=== PATIENT | female | born 1980 | race American Indian/Alaskan Native ===

== ENCOUNTER 2018-05-05 04:34 | Emergency (ER) | payer OTHER ==
[2018-05-05 04:38] VITALS: BP 152/68; PULSE 88; RESP 18; TEMP 98.8; O2SAT 98
[2018-05-05 04:39] VITALS: BMI 39.6
[2018-05-05] MEDS ORDERED: Divalproex 500 mg ER (ONCE DAILY formulation) PO STA (05:10)
--- NOTE | 2018-05-05 05:13 | ED PDOC ---
HPI: Psych/Substance Abuse Chief Complaint (Provider): depressed, out of meds History Per: Patient History/Exam Limitations: no limitations Onset/Duration Of Symptoms: Days (2) Current Symptoms Are (Timing): Still Present Additional Complaint(s): 37 y/o female history of schizoaffective disorder, bipolar type brought in by EMS for evaluation. Patient states she signed herself out of [facility] 2 days ago and has not had her Depakote medication since then. Patient states she has not been feeling right since then, tried to return to [facility] yesterday and was told she needs to go to a homeless [facility]. Patient states tonight while at the [facility] she could not fall asleep and felt nauseous and depressed. States her life is "a mess" due to her living situation and she has no help to get her medications. Denies fever, vomiting, chest pain, shortness of breath, palpitations, abdominal pain, changes in bowel movements, urinary symptoms. <Emy Davidson - Last Filed: 05/05/18 05:47> <Simon Hart - Last Filed: 05/05/18 06:40> Time Seen by Provider: 05/05/18 05:00 Chief Complaint (Nursing): Lower Extremity Problem/Injury Past Medical History Reviewed: Historical Data, Nursing Documentation, Vital Signs Vital Signs: Last Vital Signs Temp 98.8 F 05/05/18 04:37 Pulse 88 05/05/18 04:37 Resp 18 05/05/18 04:37 BP 152/68 H 05/05/18 04:37 Pulse Ox 98 05/05/18 04:37 - Medical History PMH: Bipolar Disorder - Surgical History Other surgeries: left eye cataract - Family History Family History: States: No Known Family Hx - Living Arrangements Living Arrangements: With Family <Emy Davidson - Last Filed: 05/05/18 05:47> Vital Signs: Last Vital Signs Temp 98.8 F 05/05/18 04:37 Pulse 88 05/05/18 04:37 Resp 18 05/05/18 04:37 BP 152/68 H 05/05/18 04:37 Pulse Ox 98 05/05/18 05:57 <Simon Hart - Last Filed: 05/05/18 06:40> - Allergies Allergies/Adverse Reactions: Allergies Allergy/AdvReac Type Severity Reaction Status Date / Time No Known Allergies Allergy Verified 05/05/18 04:54 Review of Systems ROS Statement: Except As Marked, All Systems Reviewed And Found Negative Psych: Positive for: Depression <Emy Davidson - Last Filed: 05/05/18 05:47> Physical Exam - Reviewed Nursing Documentation Reviewed: Yes Vital Signs Reviewed: Yes - Physical Exam Appears: Positive for: Well, Non-toxic, No Acute Distress Head Exam: Positive for: ATRAUMATIC, NORMAL INSPECTION, NORMOCEPHALIC Skin: Positive for: Normal Color Eye Exam: Positive for: Normal appearance ENT: Positive for: Normal ENT Inspection Cardiovascular/Chest: Positive for: Regular Rate, Rhythm Respiratory: Positive for: Normal Breath Sounds Gastrointestinal/Abdominal: Positive for: Normal Exam Back: Positive for: Normal Inspection Extremity: Positive for: Normal ROM Neurologic/Psych: Positive for: Alert, Oriented (x3) <Emy Davidson - Last Filed: 05/05/18 05:47> - ECG O2 Sat by Pulse Oximetry: 98 - Progress ED Course And Treament: -upreg -crisis eval -Depakote PO <Emy Davidson - Last Filed: 05/05/18 05:47> Medical Decision Making Medical Decision MakinAM --Patient cleared by crisis --Dx: Depression by Dr. Nur <Simon Hart - Last Filed: 05/05/18 06:40> Disposition - Disposition Disposition Time: 06:00 Patient Signed Over To: Simon Hart Handoff Comments: pending crisis eval <Emy Davidson - Last Filed: 05/05/18 05:47> - Disposition Disposition: Routine/Home Disposition Time: 06:39 <Simon Hart - Last Filed: 05/05/18 06:40> - Clinical Impression Clinical Impression: Schizoaffective disorder, bipolar type - Disposition Condition: STABLE Instructions: Depression
== END 2018-05-05 07:00 | disposition home or self-care (01) ==
LOC: H.ER 04:34
DX: T42.6X6A Underdosing of other antiepileptic and sedative-hypnotic drugs, initial encounter (principal); Z91.138 Patient's unintentional underdosing of medication regimen for other reason; F25.0 Schizoaffective disorder, bipolar type

== ENCOUNTER 2018-05-18 10:29 | Emergency (ER) | payer OTHER ==
[2018-05-18 10:29] VITALS: BMI 39.6
[2018-05-18 12:14] LABS: BARBITURATES, UR NEGATIVE (NEGATIVE); BENZODIAZEPINES, UR NEGATIVE (NEGATIVE); OPIATES, UR NEGATIVE (NEGATIVE); PHENCYCLIDINE, UR NEGATIVE (NEGATIVE)
--- NOTE | 2018-05-18 13:45 | ED PDOC ---
HPI: Psych/Substance Abuse Time Seen by Provider: 05/18/18 11:02 Chief Complaint (Nursing): Psychiatric Evaluation History Per: Patient Additional Complaint(s): Pt. states for the past 1.5 years she's been having intermittent depression. Reports yesterday she was in her residential and felt very sad at the fact that she's homeless. Also reports having a gradual onset frontal headache. Further states she's had similar headaches in the past and headache is usually resolved with Tylenol but she does not have money to buy it. Pt. has not used any meds to help relieve symptoms. Denies fever, head injury, rash, N/V, sudden onset of headache, LOC, neck pain/stiffness, SI/HI, hallucinations. Past Medical History Reviewed: Historical Data, Nursing Documentation, Vital Signs Vital Signs: Last Vital Signs Temp 98.6 F 05/18/18 10:33 Pulse 66 05/18/18 10:33 Resp 20 05/18/18 10:33 BP 144/87 05/18/18 10:33 Pulse Ox 100 05/18/18 10:33 - Medical History PMH: Bipolar Disorder, Schizophrenia Denies: Diabetes, Hepatitis, HIV, HTN, Seizures, Sexually Transmitted Disease - Family History Family History: States: No Known Family Hx - Allergies Allergies/Adverse Reactions: Allergies Allergy/AdvReac Type Severity Reaction Status Date / Time No Known Allergies Allergy Verified 05/05/18 04:54 Review of Systems ROS Statement: Except As Marked, All Systems Reviewed And Found Negative Neurological: Positive for: Headache Physical Exam - Physical Exam Appears: Positive for: Well, Non-toxic, No Acute Distress Head Exam: Positive for: ATRAUMATIC, NORMAL INSPECTION, NORMOCEPHALIC Skin: Positive for: Normal Color, Warm. Negative for: Rash Eye Exam: Positive for: EOMI, Normal appearance, PERRL ENT: Positive for: Normal ENT Inspection Neck: Positive for: Normal, Painless ROM, Supple Cardiovascular/Chest: Positive for: Regular Rate, Rhythm Respiratory: Positive for: Normal Breath Sounds Gastrointestinal/Abdominal: Positive for: Soft. Negative for: Tenderness Neurologic/Psych: Positive for: Alert, Oriented (x3), Mood/Affect (calm, cooperative). Negative for: Aphasia, Facial Droop - Laboratory Results Urine POC: Negative - ECG O2 Sat by Pulse Oximetry: 100 - Progress ED Course And Treament: Tylenol PO, crisis eval ordered. Pt. evaluated by Alayna FRIEDMAN who spoke with Dr. Krishnan and cleared pt. for discharge. On re-evaluation, pt. sleeping comfortably. Easily arousable. Reports good relief of headache. Disposition - Clinical Impression Clinical Impression: Depression - Patient ED Disposition Is Patient to be Admitted: No - Disposition Referrals: [facility] [Outside] Disposition: Routine/Home Disposition Time: 13:20 Condition: STABLE Additional Instructions: BERENICE DURAN, thank you for letting us take care of you today. Your provider was Blaise Jacome MD and you were treated for PSYCH EVAL. The emergency medical care you received today was directed at your acute symptoms. If you were prescribed any medication, please fill it and take as directed. It may take several days for your symptoms to resolve. Return to the Emergency Department if your symptoms worsen, do not improve, or if you have any other problems. Please contact your doctor or call one of the physicians/clinics you have been referred to that are listed on the Patient Visit Information form that is included in your discharge packet. Bring any paperwork you were given at discharge with you along with any medications you are taking to your follow up visit. Our treatment cannot replace ongoing medical care by a primary care provider outside of the emergency department. Thank you for allowing the [facility] team to be part of your care today. If you had an X-Ray or CT scan: A Radiologist will review the ED reading if any change in treatment is needed we will contact you. If you had a blood, urine, or wound culture: It will take several days for the results, if any change in treatment is needed we will contact you. If you had an STI test: It will take 48 hours for the results. Please call after 1 week if you have not heard back. Instructions: Depression, Adult (DC) Forms: [employer] (Mongolian)
[2018-05-18 14:06] VITALS: BP 128/78; PULSE 79; RESP 19; TEMP 97.6
[2018-05-18 16:07] VITALS: O2SAT 100
== END 2018-05-18 14:07 | disposition home or self-care (01) ==
LOC: H.ER 10:29
DX: F32.9 Major depressive disorder, single episode, unspecified (principal); Z86.59 Personal history of other mental and behavioral disorders; Z59.0 Homelessness; Z00.8 Encounter for other general examination

== ENCOUNTER 2018-05-22 16:27 | Emergency (ER) | payer OTHER ==
[2018-05-22 16:27] VITALS: BMI 39.6
[2018-05-22 16:38] VITALS: RESP 16; O2SAT 100
[2018-05-22 19:07] VITALS: BP 132/78; PULSE 72; TEMP 98.2
--- NOTE | 2018-05-22 19:12 | ED PDOC ---
HPI: Abdomen Time Seen by Provider: 05/22/18 18:21 Chief Complaint (Nursing): Abdominal Pain Chief Complaint (Provider): Abdominal Pain History Per: Patient History/Exam Limitations: no limitations Onset/Duration Of Symptoms: Hrs Current Symptoms Are (Timing): Still Present Additional Complaint(s): 37 y/o female with a PMHx of Bipolar Disorder and Schizophrenia presents to the ED for evaluation of mid-abdominal pain, onset earlier today. Patient states pain is mild and associated with nausea. Of note, patient additionally is requesting assistance to get into housing from the ER. Otherwise, patient denies dysuria, vomiting and any radiation of abdominal pain. PMD: No Provider Past Medical History Reviewed: Historical Data, Nursing Documentation, Vital Signs Vital Signs: Last Vital Signs Temp 98.2 F 05/22/18 19:06 Pulse 72 05/22/18 19:06 Resp 16 05/22/18 19:06 BP 132/78 05/22/18 19:06 Pulse Ox 100 05/22/18 19:06 - Medical History PMH: Bipolar Disorder, Schizophrenia Denies: Diabetes, Hepatitis, HIV, HTN, Seizures, Sexually Transmitted Disease - Surgical History Surgical History: No Surg Hx - Family History Family History: States: Unknown Family Hx - Allergies Allergies/Adverse Reactions: Allergies Allergy/AdvReac Type Severity Reaction Status Date / Time No Known Allergies Allergy Verified 05/27/18 21:47 Review of Systems ROS Statement: Except As Marked, All Systems Reviewed And Found Negative Gastrointestinal: Positive for: Nausea, Abdominal Pain. Negative for: Vomiting Genitourinary Female: Negative for: Dysuria Physical Exam - Reviewed Nursing Documentation Reviewed: Yes Vital Signs Reviewed: Yes - Physical Exam Appears: Positive for: No Acute Distress (pleasant and cooperative) Head Exam: Positive for: ATRAUMATIC Skin: Positive for: Normal Color, Warm, Dry Eye Exam: Positive for: Normal appearance, EOMI, PERRL ENT: Positive for: Other (Poor Dentition ) Gastrointestinal/Abdominal: Positive for: Normal Exam, Soft. Negative for: Tenderness Extremity: Positive for: Normal ROM - ECG O2 Sat by Pulse Oximetry: 100 (RA) Pulse Ox Interpretation: Normal Medical Decision Making Medical Decision Making: Time: 1848 A/P: Patient with mild abdominal pain without vomiting. -- Resolved with PO GI cocktail -- Patient tolerating PO -- Informed do not have services to assist with housing. -- Patient to be discharged home and follow up with PMD. Patient given a referral to the outpatient clinic. -- Pepcid 40 mg PO -- Reglan 5 mg PO -- Reglan 10 mg PO -- Reglan 10 mg PO Scribe Attestation: Documented by Tj Link, acting as a scribe for Deb Love MD Provider Scribe Attestation: All medical record entries made by the Scribe were at my direction and personally dictated by me. I have reviewed the chart and agree that the record accurately reflects my personal performance of the history, physical exam, medical decision making, and the department course for this patient. I have also personally directed, reviewed, and agree with the discharge instructions and disposition. Disposition - Clinical Impression Clinical Impression: Abdominal pain - Disposition Referrals: [facility] [Outside] Disposition Time: 19:00 Condition: IMPROVED Additional Instructions: Follow up in outpatient clinic. Increase water and soft foods while symptoms persist. Instructions: Stomach Ache and Stomach Upset Forms: [email or web address] (German), [facility] ED School/Work Excuse Print Language: FAROESE
== END 2018-05-22 19:07 | disposition home or self-care (01) ==
LOC: H.ER 16:27
DX: R10.9 Unspecified abdominal pain (principal); F20.9 Schizophrenia, unspecified; F31.9 Bipolar disorder, unspecified

== ENCOUNTER 2018-05-26 11:18 | Emergency (ER) | payer OTHER ==
[2018-05-26 11:18] VITALS: BMI 39.6
[2018-05-26 11:23] VITALS: O2SAT 100
--- NOTE | 2018-05-26 12:03 | ED PDOC ---
HPI: Female Pain Time Seen by Provider: 05/26/18 11:32 Chief Complaint (Nursing): Female Genitourinary Chief Complaint (Provider): Headache History Per: Patient Additional Complaint(s): 37 yo female, PMH of Bipolar disorder and schizophrenia, presents to ED for evaluation of headache and would like some Motrin. Additionally, Pt notes she has had urinary frequency in the last few hours, no burning on urination or blood in her urine. Pt also reports being homeless and alberto like to know where to go. Past Medical History Reviewed: Nursing Documentation, Vital Signs Vital Signs: Last Vital Signs Temp 98.3 F 05/26/18 11:23 Pulse 78 05/26/18 11:23 Resp 16 05/26/18 11:23 BP 135/84 05/26/18 11:23 Pulse Ox 100 05/26/18 11:23 - Medical History PMH: Bipolar Disorder, Schizophrenia Denies: Diabetes, Hepatitis, HIV, HTN, Seizures, Sexually Transmitted Disease - Surgical History Surgical History: No Surg Hx - Family History Family History: States: Unknown Family Hx - Living Arrangements Living Arrangements: Other - Social History Current smoker - smoking cessation education provided: No Alcohol: None Drugs: Denies - Allergies Allergies/Adverse Reactions: Allergies Allergy/AdvReac Type Severity Reaction Status Date / Time No Known Allergies Allergy Verified 05/05/18 04:54 Review of Systems ROS Statement: Except As Marked, All Systems Reviewed And Found Negative Neurological: Positive for: Headache Physical Exam - Reviewed Nursing Documentation Reviewed: Yes Vital Signs Reviewed: Yes - Physical Exam Appears: Positive for: Well, Non-toxic, No Acute Distress Head Exam: Positive for: ATRAUMATIC, NORMAL INSPECTION, NORMOCEPHALIC Skin: Positive for: Normal Color, Warm, DRY Eye Exam: Positive for: EOMI, Normal appearance, PERRL ENT: Positive for: Normal ENT Inspection Neck: Positive for: Normal, Painless ROM Cardiovascular/Chest: Positive for: Regular Rate, Rhythm Respiratory: Positive for: CNT, Normal Breath Sounds Gastrointestinal/Abdominal: Positive for: Normal Exam, Soft Back: Positive for: Normal Inspection Extremity: Positive for: Normal ROM Neurologic/Psych: Positive for: Alert, Oriented - ECG O2 Sat by Pulse Oximetry: 100 Medical Decision Making Medical Decision Making: Pt medicated with Motrin PO, reports good relief of pain. Crisis team stopped by Pt room to provide Pt with homeless senior care resources. Dip (-) blood, leuks, nites Pt given Food tray as well, which she tolerated and reported she felt comfortable to head to senior care after Disposition - Clinical Impression Clinical Impression: Headache - Patient ED Disposition Is Patient to be Admitted: No - Disposition Disposition: Routine/Home Disposition Time: 12:31 Condition: STABLE
[2018-05-26 12:28] VITALS: BP 129/74; PULSE 82; RESP 18; TEMP 98.5
== END 2018-05-26 12:28 | disposition home or self-care (01) ==
LOC: H.ER 11:18
DX: R51 Headache (principal); F20.9 Schizophrenia, unspecified; F31.9 Bipolar disorder, unspecified; Z59.0 Homelessness

== ENCOUNTER 2018-05-27 16:35 | Inpatient (IN) | payer OTHER ==
[2018-05-27 16:35] VITALS: BMI 39.6
[2018-05-27 16:49] VITALS: O2SAT 98
--- NOTE | 2018-05-27 17:05 | ED PDOC ---
HPI: Psych/Substance Abuse Time Seen by Provider: 05/27/18 16:55 Chief Complaint (Nursing): Psychiatric Evaluation Chief Complaint (Provider): Psychiatric Evaluation History Per: Patient History/Exam Limitations: no limitations Suicide/Self Injury Attempted (Context): None Severity: Moderate Additional Complaint(s): 37 year old undomiciled female with a past medical history of psychiatric problems is brought into the ED by EMS for a psychiatric evaluation. Patient r eports experiencing depression and suicidal ideation (no plan). Patient reports that she has not had depression medication for 1x month (since she was discharged from here). Patient denies having a suicidal plan, but 5x years ago she made an attempt by cutting her neck with a butter knife. PMD: None provided. Past Medical History Reviewed: Historical Data, Nursing Documentation, Vital Signs Vital Signs: Last Vital Signs Temp 98.9 F 05/27/18 16:46 Pulse 87 05/27/18 16:46 Resp 17 05/27/18 16:46 BP 147/90 05/27/18 16:46 Pulse Ox 98 05/27/18 16:46 DARRELL Report Viewed: Yes - Medical History PMH: Bipolar Disorder, Depression, Schizophrenia Denies: Diabetes, Hepatitis, HIV, HTN, Seizures, Sexually Transmitted Disease - Family History Family History: States: No Known Family Hx - Living Arrangements Living Arrangements: Other (homeless) - Social History Current smoker - smoking cessation education provided: Yes Alcohol: None Drugs: Denies - Allergies Allergies/Adverse Reactions: Allergies Allergy/AdvReac Type Severity Reaction Status Date / Time No Known Allergies Allergy Verified 05/27/18 21:47 Review of Systems ROS Statement: Except As Marked, All Systems Reviewed And Found Negative Psych: Positive for: Depression, Suicidal ideation ((-) plan) Physical Exam - Reviewed Nursing Documentation Reviewed: Yes Vital Signs Reviewed: Yes - Physical Exam Appears: Positive for: Well (appears well, requesting blanket), Non-toxic, No Acute Distress Head Exam: Positive for: ATRAUMATIC, NORMOCEPHALIC Skin: Positive for: Normal Color, Warm, Dry Cardiovascular/Chest: Positive for: Regular Rate, Rhythm Respiratory: Positive for: Normal Breath Sounds Neurologic/Psych: Positive for: Alert, Oriented (3x) - Laboratory Results Result Diagrams: 05/27/18 17:50 05/27/18 17:50 - ECG O2 Sat by Pulse Oximetry: 98 (RA) Pulse Ox Interpretation: Normal Medical Decision Making Medical Decision Makin:55 Initial impression: 37 year old female in the ED for a psychiatric evaluation. Initial plan: * crisis evaluation * alcohol serum * CMP * drug screen * upreg * CBC with diff * urinalysis * reevaluation 17:05 Patient evaluated by putty and patch worker Bernice, discussed case with , who requests that the patient be admitted. -------- --------- Scribe Attestation: Documented by Deb Macias, acting as a scribe for Bakari Aguilar PA-C. Provider Scribe Attestation: All medical record entries made by the Scribe were at my direction and personally dictated by me. I have reviewed the chart and agree that the record accurately reflects my personal performance of the history, physical exam, medical decision making, and the department course for this patient. I have also personally directed, reviewed, and agree with the discharge instructions and disposition. Disposition - Clinical Impression Clinical Impression: Schizoaffective disorder - Patient ED Disposition Is Patient to be Admitted: No - Disposition Disposition Time: 17:05 Condition: STABLE
[2018-05-27 18:07] LABS: BASO # 0.1 K/uL (0.0-0.2); EOS # 0.1 K/uL (0.0-0.7); HEMOGLOBIN 9.9 g/dL (12.0-16.0); LYMPH # 2.9 K/uL (1.0-4.3); LYMPH % 53.3 % (20.0-40.0); MEAN CELL VOLUME 70.8 fl (81.0-99.0); MEAN CORPUSCULAR HEMOGLOBIN 21.9 pg (27.0-31.0); MEAN CORPUSCULAR HGB CONC 30.9 g/dL (33.0-37.0); MEAN PLATELET VOLUME 8.3 fl (7.2-11.7); MONO # 0.5 K/uL (0.0-0.8); MONO % 8.9 % (0.0-10.0); NEUT # 1.9 K/uL (1.8-7.0); NEUT % 34.8 % (50.0-75.0); NRBC % 0.1 % (0.0-0.0); RBC 4.51 Mil/uL (3.80-5.20); RED CELL DISTRIBUTION WIDTH 15.7 % (11.5-14.5); WHITE BLOOD COUNT 5.4 K/uL (4.8-10.8)
[2018-05-27 18:09] LABS: SQUAMOUS EPITHIAL < 1 /hpf (0-5); URINE BILIRUBIN NEGATIVE (NEGATIVE); URINE BLOOD SMALL (NEGATIVE); URINE CLARITY CLEAR (Clear); URINE COLOR YELLOW (YELLOW); URINE GLUCOSE (UA) NEG (NEGATIVE); URINE LEUKOCYTE ESTERASE NEG Leu/uL (Negative); URINE PROTEIN NEGATIVE (NEGATIVE); URINE UROBILINOGEN 0.2-1.0 mg/dL (0.2-1.0)
[2018-05-27 18:17] LABS: ALB/GLOB RATIO 1.1 (1.0-2.1); ALT/SGPT 29 U/L (9-52); AST/SGOT 41 U/L (14-36); BLOOD UREA NITROGEN 8 mg/dl (7-17); CALCIUM 9.4 mg/dL (8.4-10.2); GFR NON-AFRICAN AMERICAN > 60
[2018-05-27 18:26] LABS: BARBITURATES, UR NEGATIVE (NEGATIVE); BENZODIAZEPINES, UR NEGATIVE (NEGATIVE); OPIATES, UR NEGATIVE (NEGATIVE); PHENCYCLIDINE, UR NEGATIVE (NEGATIVE)
[2018-05-27] MEDS ORDERED: DiphenhydrAMINE 50 mg/ml Inj IM PRN (20:11)
[2018-05-27] MEDS ORDERED: Magnesium Hydroxide Susp 30 ml UD PO PRN (20:11)
--- NOTE | 2018-05-27 21:57 | PCM.BM ---
Treatment Plan Problems - Problems identified on initial assessmt Medication nonadherence Date Initiated: 05/27/18 Time Initiated: 21:55 Assessment reference: NA Status: Active Auditory Hallucinations Date Initiated: 05/27/18 Time Initiated: 21:56 Assessment reference: NA Status: Active Ineffective Coping Date Initiated: 05/27/18 Time Initiated: 21:56 Assessment reference: NA Status: Active Treatment assets and liabiliti Patient Assests: cooperative, ADL independent, physically healthy, negotiates basic needs, cognitively intact Patient Liabilities: financial problems, poor support system - Milieu Protocol Maintain good personal hygiene: daily Encourage regular showers, daily Remind patient to perform daily oral care, daily Assist patient to perform ADL's Conduct patient checks and document Observation sheet: Q15 minutes Maintain personal safety: every shift Educate patient to report safety concerns to staff, every shift Monitor environment for contraband/sharps Medication safety: Monitor for expected outcome, potential side effects: every shift, Assess barriers to learning: every shift, Assess readiness for medication education: every shift
[2018-05-28 06:32] LABS: T4 6.93 ug/dl (5.5-11.0)
[2018-05-28] MEDS ORDERED: Pneumococcal 23-Valent Vaccine IM ONE (09:00)
[2018-05-28] MEDS ORDERED: Paliperidone Palmitate 234 MG/1.5 ML SYR IM ONE (12:22)
--- NOTE | 2018-05-28 12:49 | CP.PCM.CON ---
History of Present Illness - History of Present Illness History of Present Illness: Reason for Consult: Per hospital protocol HPI: 37 year old female admitted for schizoaffective disorder. No other medical issues. HD stable, NAD. ROS: Per HPI, all other systems reviewed and neg Past Patient History - Infectious Disease Hx of Infectious Diseases: None - Past Social History Alcohol: None Drugs: Denies - CARDIAC Hx Hypertension: No - PULMONARY Hx Respiratory Disorders: No Hx Tuberculosis: No - NEUROLOGICAL Hx Seizures: No - HEENT Hx HEENT Problems: Yes Hx Cataracts: Yes (L eye) - RENAL Hx Chronic Kidney Disease: No - ENDOCRINE/METABOLIC Hx Endocrine Disorders: No - HEMATOLOGICAL/ONCOLOGICAL Hx Human Immunodeficiency Virus (HIV): No - INTEGUMENTARY Hx Dermatological Problems: No - MUSCULOSKELETAL/RHEUMATOLOGICAL Hx Musculoskeletal Disorders: No - GASTROINTESTINAL Hx Gastrointestinal Disorders: No - GENITOURINARY/GYNECOLOGICAL Hx Sexually Transmitted Disorders: No - PSYCHIATRIC Hx Bipolar Disorder: Yes Hx Depression: Yes Hx Schizophrenia: Yes - SURGICAL HISTORY Hx Surgeries: Yes Hx Cataract Extraction: Yes (L cataract Sx age 16) Other/Comment: LEFT EYE CATARACTS age 16. AND L CANCER REMOVAL 1 yr ago - ANESTHESIA Hx Anesthesia: Yes Hx Anesthesia Reactions: No Hx Malignant Hyperthermia: No Has any member of the family had a problem w/ anesthesia?: No Meds Allergies/Adverse Reactions: Allergies Allergy/AdvReac Type Severity Reaction Status Date / Time No Known Allergies Allergy Verified 05/27/18 21:47 - Medications Medications: Current Medications Acetaminophen (Tylenol 325mg Tab) 650 mg PO Q4 PRN PRN Reason: Pain, moderate (4-7) Last Admin: 05/28/18 09:11 Dose: 650 mg Al Hydrox/Mg Hydrox/Simethicone (Maalox Plus 30 Ml) 30 ml PO Q4 PRN PRN Reason: Dyspepsia Diphenhydramine HCl (Benadryl) 50 mg IM Q6 PRN PRN Reason: Extrapyramidal S/S Unable PO Diphenhydramine HCl (Benadryl) 50 mg PO HS PRN PRN Reason: Insomnia Divalproex Sodium (Depakote Dr(*Bid*)) 500 mg PO DAILY GARIMA Divalproex Sodium (Depakote Dr(*Bid*)) 1,000 mg PO HS GARIMA Haloperidol (Haldol) 5 mg PO Q4 PRN PRN Reason: Agitation Haloperidol Lactate (Haldol) 5 mg IM Q4 PRN PRN Reason: Agitation, Unable to Take PO Lorazepam (Ativan) 2 mg IM Q8 PRN PRN Reason: Anxiety/Agitation,Unable PO Lorazepam (Ativan) 1 mg PO Q8 PRN PRN Reason: Anxiety/Agitation Magnesium Hydroxide (Milk Of Magnesia) 30 ml PO HS PRN PRN Reason: Constipation Paliperidone Palmitate (Invega Sustenna) 234 mg IM ONCE ONE Stop: 05/28/18 12:23 Physical Exam - Constitutional Additional comments: Vitals Reviewed GEN: WDWN, alert, cooperative HEENT: NCAT, PERRL, EOMI HEART: RRR, +S1S2, NO MRG LUNG: CTAB, NO WRR ABD: soft, NT, ND, No HSM, No masses EXT: normal pedal pulses NEURO: awake, alert SKIN: warm, dry PSYCH: normal mood, normal affect Results - Vital Signs Recent Vital Signs: Last Vital Signs Temp 98.7 F 05/28/18 09:43 Pulse 82 05/28/18 09:43 Resp 18 05/28/18 09:43 BP 158/81 H 05/28/18 09:43 Pulse Ox 98 05/27/18 22:10 - Labs Result Diagrams: 05/27/18 17:50 05/27/18 17:50 Labs: Laboratory Results - last 24 hr 05/27/18 05/27/18 05/27/18 17:50 17:50 17:50 WBC 5.4 RBC 4.51 Hgb 9.9 L Hct 31.9 L MCV 70.8 L MCH 21.9 L MCHC 30.9 L RDW 15.7 H Plt Count 357 MPV 8.3 Neut % (Auto) 34.8 L Lymph % (Auto) 53.3 H [place] % (Auto) 8.9 Eos % (Auto) 2.0 Baso % (Auto) 1.0 Neut # (Auto) 1.9 Lymph # (Auto) 2.9 [place] # (Auto) 0.5 Eos # (Auto) 0.1 Baso # (Auto) 0.1 Sodium 144 Potassium 4.0 Chloride 104 Carbon Dioxide 30 Anion Gap 14 BUN 8 Creatinine 0.7 Est GFR ( Amer) > 60 Est GFR (Non-Af Amer) > 60 Random Glucose 88 Hemoglobin A1c Calcium 9.4 Total Bilirubin < 0.1 L AST 41 H ALT 29 Alkaline Phosphatase 60 Total Protein 7.6 Albumin 4.0 Globulin 3.6 Albumin/Globulin Ratio 1.1 Triglycerides Cholesterol LDL Cholesterol Direct HDL Cholesterol Thyroxine (T4) TSH 3rd Generation Urine Color Urine Clarity Urine pH Ur Specific [place] Urine Protein Urine Glucose (UA) Urine Ketones Urine Blood Urine Nitrate Urine Bilirubin Urine Urobilinogen Ur Leukocyte Esterase Urine RBC (Auto) Urine Microscopic WBC Ur Squamous Epith Cells Urine Opiates Screen Negative Urine Methadone Screen Negative Ur Barbiturates Screen Negative Ur Phencyclidine Scrn Negative Ur Amphetamines Screen Negative U Benzodiazepines Scrn Negative U Oth Cocaine Metabols Negative U Cannabinoids Screen Negative Alcohol, Quantitative < 10 05/27/18 05/28/18 05/28/18 17:50 05:57 05:57 WBC RBC Hgb Hct MCV MCH MCHC RDW Plt Count MPV Neut % (Auto) Lymph % (Auto) [place] % (Auto) Eos % (Auto) Baso % (Auto) Neut # (Auto) Lymph # (Auto) [place] # (Auto) Eos # (Auto) Baso # (Auto) Sodium Potassium Chloride Carbon Dioxide Anion Gap BUN Creatinine Est GFR ( Amer) Est GFR (Non-Af Amer) Random Glucose Hemoglobin A1c 5.7 Calcium Total Bilirubin AST ALT Alkaline Phosphatase Total Protein Albumin Globulin Albumin/Globulin Ratio Triglycerides 58 Cholesterol 106 LDL Cholesterol Direct 59 HDL Cholesterol 41 Thyroxine (T4) 6.93 TSH 3rd Generation 0.73 Urine Color Yellow Urine Clarity Clear Urine pH 7.0 Ur Specific [place] 1.009 Urine Protein Negative Urine Glucose (UA) Neg Urine Ketones Negative Urine Blood Small Urine Nitrate Negative Urine Bilirubin Negative Urine Urobilinogen 0.2-1.0 Ur Leukocyte Esterase Neg Urine RBC (Auto) < 1 Urine Microscopic WBC 1 Ur Squamous Epith Cells < 1 Urine Opiates Screen Urine Methadone Screen Ur Barbiturates Screen Ur Phencyclidine Scrn Ur Amphetamines Screen U Benzodiazepines Scrn U Oth Cocaine Metabols U Cannabinoids Screen Alcohol, Quantitative Assessment & Plan - Assessment and Plan (Free Text) Plan: HPI: 37 year old female admitted for schizoaffective disorder. No other medical issues. HD stable, NAD. Schizoaffective Disorder management per psych
--- NOTE | 2018-05-28 13:06 | PCM.PSYCH ---
Initial Psychiatric Evaluation - Initial Psychiatric Evaluation Chief Complaint (in patient's own words): I donot have my medicine so I am depressed History of Present Illness and Precipitating Events: pt is 37ys old female with previous psychiatric diagnosis of schizoaffective disorder depressed type , discharged a month ago from [facility], pt has not been compliant with medications due to financial difficulties, pt has lost her residency with her father in [place], became homeless , pt started decompensating, experiencing auditory hallucinations, depressed mood and increased irritability, on day of admission pt started experiencing AH telling her to hurt herself and hurt others, pt came to ER seeking help on the unit pt isolating herself in her room, reported feeling hopeless and helpless, angry irritable, passive suicidal ideations without active plan on the unit, denied current command hallucinations Current Medications: Active Medications Generic Name Dose Route Start Last Admin Trade Name Freq PRN Reason Stop Dose Admin Acetaminophen 650 mg 05/27/18 20:11 05/28/18 09:11 Tylenol 325mg Tab PO 650 mg Q4 PRN Administration Pain, moderate (4-7) Al Hydrox/Mg Hydrox/Simethicone 30 ml 05/27/18 20:11 Maalox Plus 30 Ml PO Q4 PRN Dyspepsia Diphenhydramine HCl 50 mg 05/27/18 20:11 Benadryl IM Q6 PRN Extrapyramidal S/S Unable PO Diphenhydramine HCl 50 mg 05/27/18 20:11 Benadryl PO HS PRN Insomnia Divalproex Sodium 500 mg 05/29/18 09:00 Leonie Ayala(*Bid*) PO DAILY GARIMA Divalproex Sodium 1,000 mg 05/28/18 22:00 Leonie Ayala(*Bid*) PO HS GARIMA Haloperidol 5 mg 05/27/18 20:11 Haldol PO Q4 PRN Agitation Haloperidol Lactate 5 mg 05/27/18 20:11 Haldol IM Q4 PRN Agitation, Unable to Take PO Lorazepam 2 mg 05/27/18 20:11 Ativan IM Q8 PRN Anxiety/Agitation,Unable PO Lorazepam 1 mg 05/27/18 20:11 Ativan PO Q8 PRN Anxiety/Agitation Magnesium Hydroxide 30 ml 05/27/18 20:11 Milk Of Magnesia PO HS PRN Constipation Paliperidone Palmitate 234 mg 05/28/18 12:22 Invega Sustenna IM 05/28/18 12:23 ONCE ONE Past Psychiatric History - Past Psychiatric History Explanation of prior treatment: multiple hospitalizations, history of non compliance History of ETOH/Drug Use: denied Pertinent Medical Hx (Current Medical&Sleep Prob, Allergies): Allergies Allergy/AdvReac Type Severity Reaction Status Date / Time No Known Allergies Allergy Verified 05/27/18 21:47 Mental Status Examination - Personal Presentation Personal Presentation: Looks stated age - Affect Affect: Constricted, Depressed Additional comments: irritable - Motor Activity Motor Activity: Psychomotor Retardation - Reliability in Providing Information Reliability in Providing Information: Poor, due to alteration in thoughts, Poor, due to altered mood - Speech Speech: Relevant - Mood Mood: Depressed, Anxious - Formal Thought Process Formal Thought Process: Hallucinations, Circumstantial - Hallucinations/Delusions Hallucinations: Auditory - Obsessions/Compulsions Obsessions: No Compulsions: No - Cognitive Functions Orientation: Person, Place Sensorium: Alert Attention/Concentration: Easily distracted Abstract Thinking: Freedom Judgement: Imparied, as evidence by: Poor judgement, Imparied, as evidence by: Lack of insight into illness - Risk Risk: Suicidal, Homicidal, Diminished functioning - Strength & Assets Inventory Strength & Assets Inventory: Life experience - Limitations Additional comments: financial difficulties DSM 5 DX - DSM 5 DSM 5 Diagnosis: schizoaffective disorder depressed - Recommended/Plan of Treatment Treatment Recommendations and Plan of Treatment: start invega sustenna 234mg IM depakote 500mg daily and 1000mg qhs CBT group and supportive therapy
[2018-05-28] MEDS: Divalproex 500 mg DR(BID formulation) PO SCH (21:03)
[2018-05-29] MEDS: Divalproex 500 mg DR(BID formulation) PO SCH ×2 (08:55→21:09)
--- NOTE | 2018-05-29 11:13 | PCM.PYCHPN ---
Psychiatric Progress Note - Psychiatric Progress Note Patient seen today, length of contact: PT EVALUATED DISCUSSED WITH TEAM CHART REVIEWED Patient Chief Complaint: I feel calmer with the depakote Problems Identified/Issues Discussed: pt evaluated , seen in her room, reported less irritable with depakote, continues to present with depressed mood and affect, related that to her current living situation being homeless and lack of support from her family, discussed starting lexapro pt denied any current active thoughts of self harm denied command hallucinations Medical Problems: multiple hospitalizations, history of non compliance DSM 5 Symptoms Update: schizoaffective disorder Medication Change: Yes (start lexapro) Medical Record Reviewed: Yes Mental Status Examination - Cognitive Function Orientation: Person, Place Attention: WNL Concentration: Poor Association: WNL Fund of Knowledge: Poor Decription of patient's judgement and insights: partial insight fair judgment - Mood Mood: Depressed, Anxious - Affect Affect: Constricted, Depressed - Speech Speech: Soft - Formal Thought Process Formal Thought Process: Hallucinations, Circumstantial - Suicidal Ideation Suicidal Ideation: No - Homicidal Ideation Homicidal Ideation: No Goal/Treatment Plan - Goal/Treatment Plan Need for Continued Stay: Severe depression anxiety, Discharge may exacerbated symptoms Progress Toward Problem(s) and Goals/Treatment Plan: invega sustenna 234mg IM depakote 500mg daily and 1000mg qhs / follow up on depakote level lexapro 5mg qhs CBT group and supportive therapy
[2018-05-29] MEDS: Alum-Mag Hydrox-Simethicone Susp (30 mL) PO PRN (18:57)
[2018-05-30] MEDS: Divalproex 500 mg DR(BID formulation) PO SCH ×2 (09:03→22:00)
--- NOTE | 2018-05-30 13:33 | PCM.PYCHPN ---
Psychiatric Progress Note - Psychiatric Progress Note Patient seen today, length of contact: PT EVALUATED DISCUSSED WITH TEAM CHART REVIEWED Patient Chief Complaint: I need help with housing Problems Identified/Issues Discussed: pt evaluated ,with treatment team, reported clearing off of the auditory hallucinations, continues to feel down due to her current living situation being homeless , discussed increasing lexapro, no reported side effects, encouraged pt to attend groups pt denied any current active thoughts of self harm denied command hallucinations Medical Problems: multiple hospitalizations, history of non compliance DSM 5 Symptoms Update: schizoaffective disorder depressed Medication Change: Yes (increase lexapro) Medical Record Reviewed: Yes Mental Status Examination - Cognitive Function Orientation: Person, Place Attention: WNL Concentration: Poor Association: WNL Fund of Knowledge: Poor Decription of patient's judgement and insights: partial insight fair judgment - Mood Mood: Depressed, Anxious - Affect Affect: Constricted, Depressed - Speech Speech: Soft - Formal Thought Process Formal Thought Process: Hallucinations, Circumstantial - Suicidal Ideation Suicidal Ideation: No - Homicidal Ideation Homicidal Ideation: No Goal/Treatment Plan - Goal/Treatment Plan Need for Continued Stay: Severe depression anxiety, Discharge may exacerbated symptoms Progress Toward Problem(s) and Goals/Treatment Plan: invega sustenna 234mg IM depakote 500mg daily and 1000mg qhs / follow up on depakote level lexapro 10mg qhs CBT group and supportive therapy
[2018-05-30] MEDS: Alum-Mag Hydrox-Simethicone Susp (30 mL) PO PRN (21:30)
[2018-05-31] MEDS: Divalproex 500 mg DR(BID formulation) PO SCH ×2 (09:58→21:11)
[2018-05-31] MEDS: Alum-Mag Hydrox-Simethicone Susp (30 mL) PO PRN (14:12)
--- NOTE | 2018-05-31 19:27 | PCM.PYCHPN ---
Psychiatric Progress Note - Psychiatric Progress Note Patient seen today, length of contact: PT EVALUATED DISCUSSED WITH TEAM CHART REVIEWED Patient Chief Complaint: pt reports was feeling sad worrying about things not taking rx on a regular basis. speaks of attending [employer] [facility]-having had taken too many classes not finishing-admits would like to return one day, speaks of wanting [facility], admittedly attending program in [place]-would like to return there upon discharge Problems Identified/Issues Discussed: alteration in mood alteration in self care alteration in domicile Medical Problems: per chart Diagnostic Results: per psychiatry per medicine per nursing per social work per recreational therapy Medication Change: No Medical Record Reviewed: Yes Consults ordered or reviewed: pt seen by hospitalist Mental Status Examination - Cognitive Function Orientation: Person, Place Attention: WNL Concentration: Poor Association: WNL Fund of Knowledge: Poor Decription of patient's judgement and insights: impaired - Mood Mood: Depressed, Anxious - Affect Affect: Constricted, Depressed - Speech Speech: Soft - Formal Thought Process Formal Thought Process: Hallucinations, Circumstantial - Suicidal Ideation Suicidal Ideation: No - Homicidal Ideation Homicidal Ideation: No Goal/Treatment Plan - Goal/Treatment Plan Need for Continued Stay: Severe depression anxiety, Discharge may exacerbated symptoms Progress Toward Problem(s) and Goals/Treatment Plan: inpt milieu adjust medications per clinical status vital signs per clinical status and per Estimated Date of D/C: 06/04/18 - Smoking Cessation Smoking Cessation Initiated: No Reason for not providing: defers
[2018-06-01] MEDS: Divalproex 500 mg DR(BID formulation) PO SCH ×2 (09:04→21:02)
[2018-06-01 17:32] VITALS: BP 139/70; PULSE 80; RESP 20; TEMP 97.7
--- NOTE | 2018-06-01 17:35 | PCM.PYCHPN ---
Psychiatric Progress Note - Psychiatric Progress Note Patient seen today, length of contact: PT EVALUATED DISCUSSED WITH TEAM CHART REVIEWED Patient Chief Complaint: pt refused am valproic acid level today ?not wanting to be awoken, pt reportedly out of room for meds/meals, did not attend groups. pt rx adherent pt reports was feeling sad worrying about things not taking rx on a regular basis. speaks of attending [employer] [facility]-having had taken too many classes not finishing-admits would like to return one day, speaks of wanting [facility], admittedly attending program in [place]-would like to return there upon discharge Problems Identified/Issues Discussed: alteration in mood alteration in self care alteration in domicile Medical Problems: per chart Diagnostic Results: per psychiatry per medicine per nursing per social work per recreational therapy DSM 5 Symptoms Update: some improvement \reaction slow/thought process at times some improvement mood some improvement sleep Medication Change: No Medical Record Reviewed: Yes Mental Status Examination - Cognitive Function Orientation: Person, Place Attention: WNL Concentration: Poor Association: WNL Fund of Knowledge: Poor Decription of patient's judgement and insights: impaired - Mood Mood: Depressed, Anxious - Affect Affect: Constricted, Depressed - Speech Speech: Soft - Formal Thought Process Formal Thought Process: Hallucinations, Circumstantial - Suicidal Ideation Suicidal Ideation: No - Homicidal Ideation Homicidal Ideation: No Goal/Treatment Plan - Goal/Treatment Plan Need for Continued Stay: Severe depression anxiety, Discharge may exacerbated symptoms Progress Toward Problem(s) and Goals/Treatment Plan: inpt milieu adjust medications per clinical status vital signs per clinical status and per Estimated Date of D/C: 06/04/18
[2018-06-02] MEDS: Divalproex 500 mg DR(BID formulation) PO SCH ×2 (14:35→21:58)
--- NOTE | 2018-06-02 22:18 | PCM.PYCHPN ---
Psychiatric Progress Note - Psychiatric Progress Note Patient seen today, length of contact: PT EVALUATED DISCUSSED WITH TEAM CHART REVIEWED Patient Chief Complaint: pt refused am valproic acid level today ?not wanting to be awoken, pt reportedly out of room for meds/meals, did not attend groups. pt rx adherent pt reports was feeling sad worrying about things not taking rx on a regular basis. speaks of attending [employer] [facility]-having had taken too many classes not finishing-admits would like to return one day, speaks of wanting [facility], admittedly attending program in [place]-would like to return there upon discharge Problems Identified/Issues Discussed: alteration in mood alteration in self care alteration in domicile Medical Problems: per chart Diagnostic Results: per psychiatry per medicine per nursing per social work per recreational therapy Medication Change: No Medical Record Reviewed: Yes Mental Status Examination - Cognitive Function Orientation: Person, Place Attention: WNL Concentration: Poor Association: WNL Fund of Knowledge: Poor Decription of patient's judgement and insights: impaired - Mood Mood: Depressed, Anxious - Affect Affect: Constricted, Depressed - Speech Speech: Soft - Formal Thought Process Formal Thought Process: Hallucinations, Circumstantial - Suicidal Ideation Suicidal Ideation: No - Homicidal Ideation Homicidal Ideation: No Goal/Treatment Plan - Goal/Treatment Plan Need for Continued Stay: Severe depression anxiety, Discharge may exacerbated symptoms Progress Toward Problem(s) and Goals/Treatment Plan: inpt milieu adjust medications per clinical status vital signs per clinical status and per Estimated Date of D/C: 06/04/18
[2018-06-03] MEDS: Divalproex 500 mg DR(BID formulation) PO SCH ×2 (10:42→21:19)
[2018-06-04] MEDS: Divalproex 500 mg DR(BID formulation) PO SCH (09:11)
--- NOTE | 2018-06-04 12:09 | PCM.PYCHDC ---
Mental Status Examination - Mental Status Examination Orientation: Person, Place, Situation, Time Memory: Intact Mood: Neutral Affect: Broad Speech: Appropriate Attention: WNL Concentration: WNL Association: WNL Fund of Knowledge: WNL Formal Thought Process: No Impairment Description of patient's judgement and insight: Fair I/J Psychotic Thoughts and Behaviors: No AH/VH/paranoia/delusions Suicidal Ideation: No Current Homicidal Ideation?: No Discharge Summary - Discharge Note Reason for Hospitalization: As per initial evaluation by Dr. Nur: pt is 37ys old female with previous psychiatric diagnosis of schizoaffective disorder depressed type , discharged a month ago from [facility], pt has not been compliant with medications due to financial difficulties, pt has lost her residency with her father in [place], became homeless , pt started decompensating, experiencing auditory hallucinations, depressed mood and increased irritability, on day of admission pt started experiencing AH telling her to hurt herself and hurt others, pt came to ER seeking help on the unit pt isolating herself in her room, reported feeling hopeless and helpless, angry irritable, passive suicidal ideations without active plan on the unit, denied current command hallucinations Laboratory Data: VPA 107 on 06/04/17; dosage subsequently lowered after VPA level Consultations:: List each consultation separately and include: 1. Reason for request. 2. Findings. 3. Follow-up Consultations: Medicine consult Summary of Hospital Course include:: 1. Description of specific treatment plan utilized for patients during their course of treatmen. 2. Summarize the time- course for resolution of acute symptoms and/or regressed behaviors. 3. Describe issues identified and worked on during hospitalization. 4. Describe medication utilized. 5. Describe medical problems identified and treated. 6. Reassessment of suicide risk Summary of Hospital Course: Patient was admitted to the psychiatry unit. Individual and group therapy were provided. Patient was stabilized on Depakote and Lexapro. She denies acute depression/anxiety/AH/VH/paranoia/delusions/SI/HI. Patient is psychiatrically stable for discharge with outpatient follow-up. Patient received Invega Sustenna 234 mg IM on 05/28/18; next dose due 06/25/18 - Final Diagnosis (DSM 5) Condition upon Discharge: STABLE DSM 5: Schizoaffective Disorder Disposition: HOME/ ROUTINE Follow-up Treatment Plan: -Discharge with outpatient follow-up Patient received Invega Sustenna 234 mg IM on 05/28/18; next dose due 06/25/18 Prescriptions/Medication Reconciliation: Divalproex [Leonie THOMPSON(*BID*)] 250 mg PO DAILY #30 tcp Divalproex [Leonie THOMPSON(*BID*)] 1,000 mg PO HS #60 tcp Escitalopram [Lexapro] 10 mg PO HS #30 tab - Smoking Cessation Smoking Cessation Medication prescribed: No Reason for not providing: Patient declined - Antipsychotic Medications Pt discharged on 2 or more routine antipsychotic medications: No
[2018-06-05] MEDS ORDERED: Divalproex 250 mg DR(BID formulation) PO SCH (09:00)
== END 2018-06-04 14:31 | disposition home or self-care (01) | DRG 430 ==
LOC: H.ER 16:35 → H.PSYCH 17:07
PROVIDERS: ADMIT Psychiatry & Neurology Psychiatry; ATTEND Psychiatry & Neurology Psychiatry
PROC: GZHZZZZ Group Psychotherapy (ICD-10-PCS; principal; 2018-05-27)
PROC: GZ56ZZZ Individual Psychotherapy, Supportive (ICD-10-PCS; 2018-05-27)
PROC: GZ58ZZZ Individual Psychotherapy, Cognitive-Behavioral (ICD-10-PCS; 2018-05-27)
PROC: 3E0234Z Introduction of Serum, Toxoid and Vaccine into Muscle, Percutaneous Approach (ICD-10-PCS; 2018-05-29)
DX: F25.1 Schizoaffective disorder, depressive type (principal); Z91.14 Patient's other noncompliance with medication regimen; Z59.0 Homelessness; F17.200 Nicotine dependence, unspecified, uncomplicated; R45.851 Suicidal ideations; Z23 Encounter for immunization

== ENCOUNTER 2018-06-08 10:35 | Emergency (ER) | payer OTHER ==
[2018-06-08 10:35] VITALS: BMI 39.6
[2018-06-08 10:43] VITALS: TEMP 98.2; O2SAT 100
--- NOTE | 2018-06-08 11:28 | ED PDOC ---
HPI: Influenza Time Seen by Provider: 06/08/18 10:41 Chief Complaint: Flu-like Symptoms History Per: Patient Additional complaint(s):: Cough, congestion, bodyaches, and tactile fever x 2 days. 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 Also states she is currently homeless and is living in a prison. Pt. states she did not receive her influenza vaccine this season. Denies chest pain, SOB, chills, abd pain, N/V/D, recent travel, rash. Past Medical History Reviewed: Historical Data, Nursing Documentation, Vital Signs Vital Signs: Last Vital Signs Temp 98.2 F 06/08/18 10:42 Pulse 73 06/08/18 10:42 Resp 17 06/08/18 10:42 BP 138/82 06/08/18 10:42 Pulse Ox 100 06/08/18 10:42 - Medical History PMH: Bipolar Disorder, Depression, Schizophrenia Denies: Diabetes, Hepatitis, HIV, HTN, Chronic Kidney Disease, Seizures, Sexually Transmitted Disease - Surgical History Surgical History: No Surg Hx - Family History Family History: States: No Known Family Hx - Home Medications Home Medications: Ambulatory Orders Medication Instructions Recorded RX: Divalproex [Depakote DR(*BID*)] 1,000 mg PO HS #60 tcp 06/04/18 RX: Divalproex [Depakote DR(*BID*)] 250 mg PO DAILY #30 tcp 06/04/18 RX: Escitalopram [Lexapro] 10 mg PO HS #30 tab 06/04/18 Benzonatate [Tessalon Perle] 100 mg PO Q8 PRN #10 capsule 06/08/18 Ibuprofen [Motrin] 600 mg PO Q6 PRN #10 tab 06/08/18 Oseltamivir Cap [Tamiflu] 75 mg PO BID #9 cap 06/08/18 - Allergies Allergies/Adverse Reactions: Allergies Allergy/AdvReac Type Severity Reaction Status Date / Time No Known Allergies Allergy Verified 05/27/18 21:47 Review of Systems ROS Statement: Except As Marked, All Systems Reviewed And Found Negative Constitutional: Positive for: Fever ENT: Positive for: Nose Congestion Respiratory: Positive for: Cough Physical Exam - Physical Exam Appears: Positive for: Well, Non-toxic, No Acute Distress Skin: Positive for: Normal Color, Warm. Negative for: Rash Eye Exam: Positive for: Normal appearance. Negative for: Conjunctival injection (b/l) ENT: Positive for: Normal ENT Inspection Neck: Positive for: Normal, Painless ROM Cardiovascular/Chest: Positive for: Regular Rate, Rhythm Respiratory: Positive for: Normal Breath Sounds. Negative for: Respiratory Distress Gastrointestinal/Abdominal: Positive for: Soft. Negative for: Tenderness Neurologic/Psych: Positive for: Alert, Oriented (x3), Mood/Affect (calm, cooperative) Medical Decision Making Medical Decision Making: Tamiflu PO ordered. - ECG O2 Sat by Pulse Oximetry: 100 - Progress ED Course And Treament: Pt. informed that she will be treated for influenza due to her clinical presentation and risk factors. Agrees with plan and care. Advised to f/u with [facility] for further evaluation but is to return to ED immediately if symptoms worsen. Pt. verbalized correct understanding of f/u and treatment plan to provider. Tamiflu PO ordered. Disposition - Clinical Impression Clinical Impression: Influenza-like symptoms - Patient ED Disposition Is Patient to be Admitted: No - Disposition Referrals: [facility] [Outside] Disposition: Routine/Home Disposition Time: 11:15 Condition: STABLE Additional Instructions: FOLLOW UP WITH [facility] FOR FURTHER EVALUATION RETURN TO ED IMMEDIATELY IF SYMPTOMS WORSEN BERENICE DURAN, thank you for letting us take care of you today. Your provider w as Sera De La O MD and you were treated for FLU LIKE SYMPTOMS. The emergency medical care you received today was directed at your acute symptoms. If you were prescribed any medication, please fill it and take as directed. It may take several days for your symptoms to resolve. Return to the Emergency Department if your symptoms worsen, do not improve, or if you have any other problems. Please contact your doctor or call one of the physicians/clinics you have been referred to that are listed on the Patient Visit Information form that is included in your discharge packet. Bring any paperwork you were given at discharge with you along with any medications you are taking to your follow up visit. Our treatment cannot replace ongoing medical care by a primary care provider outside of the emergency department. Thank you for allowing the [facility] team to be part of your care today. If you had an X-Ray or CT scan: A Radiologist will review the ED reading if any change in treatment is needed we will contact you. If you had a blood, urine, or wound culture: It will take several days for the results, if any change in treatment is needed we will contact you. If you had an STI test: It will take 48 hours for the results. Please call after 1 week if you have not heard back. Prescriptions: Benzonatate [Tessalon Perle] 100 mg PO Q8 PRN #10 capsule PRN Reason: Cough Ibuprofen [Motrin] 600 mg PO Q6 PRN #10 tab PRN Reason: pain or fever Oseltamivir Cap [Tamiflu] 75 mg PO BID #9 cap Instructions: Flu, Adult (DC)
[2018-06-08 12:05] VITALS: BP 130/80; PULSE 70; RESP 16
== END 2018-06-08 12:06 | disposition home or self-care (01) ==
LOC: H.ER 10:35
DX: J11.1 Influenza due to unidentified influenza virus with other respiratory manifestations (principal); Z86.59 Personal history of other mental and behavioral disorders; Z59.0 Homelessness

== ENCOUNTER 2018-06-15 08:49 | Emergency (ER) | payer OTHER ==
[2018-06-15 08:50] VITALS: BMI 39.6
[2018-06-15 09:01] VITALS: RESP 18
--- NOTE | 2018-06-15 09:48 | ED PDOC ---
HPI: CCC, URI, Sore Throat Time Seen by Provider: 06/15/18 09:08 Chief Complaint (Nursing): ENT Problem Chief Complaint (Provider): Cough History Per: Patient History/Exam Limitations: no limitations Onset/Duration Of Symptoms: Days (3) Additional Complaint(s): Pt. with cough, congestion, runny nose, body aches. No weakness, headaches, dizziness, numbness, tingles, nausea, vomit, diarrhea. No abd pain. Feels depressed, but not suicidal or homicidal. Past Medical History Reviewed: Nursing Documentation, Vital Signs Vital Signs: Last Vital Signs Temp 98.2 F 06/15/18 09:01 Pulse 71 06/15/18 09:01 Resp 18 06/15/18 09:01 BP 136/75 06/15/18 09:01 Pulse Ox 100 06/15/18 09:01 - Medical History PMH: Bipolar Disorder, Depression, Schizophrenia Denies: Diabetes, Hepatitis, HIV, HTN, Chronic Kidney Disease, Seizures, Sexually Transmitted Disease - Family History Family History: States: Unknown Family Hx - Home Medications Home Medications: Ambulatory Orders Medication Instructions Recorded Divalproex [Depakote DR(*BID*)] 1,000 mg PO HS #60 tcp 06/04/18 Divalproex [Depakote DR(*BID*)] 250 mg PO DAILY #30 tcp 06/04/18 Escitalopram [Lexapro] 10 mg PO HS #30 tab 06/04/18 Benzonatate [Tessalon Perle] 100 mg PO Q8 PRN #10 capsule 06/08/18 Ibuprofen [Motrin] 600 mg PO Q6 PRN #10 tab 06/08/18 Oseltamivir Cap [Tamiflu] 75 mg PO BID #9 cap 06/08/18 Benzonatate [Tessalon Perles] 100 mg PO BID PRN 5 Days sgl 06/15/18 Ibuprofen [Motrin] 600 mg PO TID 7 Days tab 06/15/18 - Allergies Allergies/Adverse Reactions: Allergies Allergy/AdvReac Type Severity Reaction Status Date / Time No Known Allergies Allergy Verified 05/27/18 21:47 Review of Systems ROS Statement: Except As Marked, All Systems Reviewed And Found Negative ENT: Positive for: Nose Discharge, Nose Congestion Respiratory: Positive for: Cough Psych: Positive for: Depression Physical Exam - Reviewed Nursing Documentation Reviewed: Yes Vital Signs Reviewed: Yes - Physical Exam Appears: Positive for: Non-toxic, No Acute Distress Head Exam: Positive for: ATRAUMATIC, NORMAL INSPECTION, NORMOCEPHALIC Skin: Positive for: Normal Color, Warm, DRY Eye Exam: Positive for: EOMI, Normal appearance, PERRL ENT: Positive for: Nasal Congestion. Negative for: Pharyngeal Erythema, Tonsillar Exudate Neck: Positive for: Normal, Painless ROM, Supple Cardiovascular/Chest: Positive for: Regular Rate, Rhythm Respiratory: Positive for: CNT, Normal Breath Sounds Gastrointestinal/Abdominal: Positive for: Normal Exam, Soft. Negative for: Tenderness Back: Positive for: Normal Inspection. Negative for: L CVA Tenderness, R CVA Tenderness Extremity: Positive for: Normal ROM. Negative for: Tenderness, Pedal Edema Neurologic/Psych: Positive for: Alert, alcohol law enforcement agent II-XII, Oriented. Negative for: Motor/Sensory Deficits - Laboratory Results Lab Results: flu neg - ECG O2 Sat by Pulse Oximetry: 100 Pulse Ox Interpretation: Normal - Progress ED Course And Treament: 1158: Crisis saw pt. Does not meet criteria for admit. Fu with pcp. AAOx3. Feels better. Disposition - Clinical Impression Clinical Impression: Depression, URI (upper respiratory infection) - Patient ED Disposition Is Patient to be Admitted: No Counseled Patient/Family Regarding: Studies Performed, Diagnosis, Need For Followup, Rx Given - Disposition Referrals: [facility] [Outside] - 06/18/18 Disposition: Routine/Home Disposition Time: 12:06 Condition: STABLE Additional Instructions: Return if not better in 3 days. Prescriptions: Benzonatate [Tessalon Perles] 100 mg PO BID PRN 5 Days sgl PRN Reason: Cough Ibuprofen [Motrin] 600 mg PO TID 7 Days tab Instructions: Depression, Adult (DC), Viral Upper Respiratory Infection, Adult (DC)
[2018-06-15 12:30] VITALS: BP 119/69; PULSE 71; TEMP 98; O2SAT 100
== END 2018-06-15 12:29 | disposition home or self-care (01) ==
LOC: H.ER 08:49
DX: F32.9 Major depressive disorder, single episode, unspecified (principal); J06.9 Acute upper respiratory infection, unspecified; F20.9 Schizophrenia, unspecified; F31.9 Bipolar disorder, unspecified

== ENCOUNTER 2018-06-18 07:09 | Emergency (ER) | payer OTHER ==
[2018-06-18 07:09] VITALS: BMI 39.6
[2018-06-18 07:47] VITALS: TEMP 97.7; O2SAT 100
--- NOTE | 2018-06-18 08:38 | ED PDOC ---
HPI: Psych/Substance Abuse Time Seen by Provider: 06/18/18 07:57 Chief Complaint (Nursing): Psychiatric Evaluation Chief Complaint (Provider): Psychiatric Evaluation History Per: Patient History/Exam Limitations: no limitations Onset/Duration Of Symptoms: Days (x3) Current Symptoms Are (Timing): Still Present Additional Complaint(s): Patient is a 37 y/o female with a PMHX of depression, gallstones, bipolar disorder, and schizophrenia who presents to the ED for psychiatric evaluation and a stomach ache ongoing for the past three days. Patient claims to have been experiencing non-bloody diarrhea. Patient denies suicidal or homicidal ideation, nausea, vomiting, and fever. In addition, patient states it is cold outside and wants a place to stay for a couple hours. Of note, patient takes medication for her chronic depression but states she wants to be admitted to a mental hospital. PCP: None Provided Past Medical History Reviewed: Historical Data, Nursing Documentation, Vital Signs Vital Signs: Last Vital Signs Temp 97.7 F 06/18/18 07:46 Pulse 76 06/18/18 07:46 Resp 15 06/18/18 07:46 BP 134/79 06/18/18 07:46 Pulse Ox 100 06/18/18 07:46 - Medical History PMH: Bipolar Disorder, Depression, Schizophrenia Denies: Diabetes, Hepatitis, HIV, HTN, Chronic Kidney Disease, Seizures, Sexually Transmitted Disease Other PMH: gallstones - Surgical History Surgical History: No Surg Hx - Family History Family History: States: Unknown Family Hx - Home Medications Home Medications: Ambulatory Orders Medication Instructions Recorded Divalproex [Depakote DR(*BID*)] 1,000 mg PO HS #60 tcp 06/04/18 Divalproex [Depakote DR(*BID*)] 250 mg PO DAILY #30 tcp 06/04/18 Escitalopram [Lexapro] 10 mg PO HS #30 tab 06/04/18 Benzonatate [Tessalon Perle] 100 mg PO Q8 PRN #10 capsule 06/08/18 Ibuprofen [Motrin] 600 mg PO Q6 PRN #10 tab 06/08/18 Oseltamivir Cap [Tamiflu] 75 mg PO BID #9 cap 06/08/18 Benzonatate [Tessalon Perles] 100 mg PO BID PRN 5 Days sgl 06/15/18 Ibuprofen [Motrin] 600 mg PO TID 7 Days tab 06/15/18 Famotidine [Pepcid] 20 mg PO DAILY #14 tab 06/18/18 - Allergies Allergies/Adverse Reactions: Allergies Allergy/AdvReac Type Severity Reaction Status Date / Time No Known Allergies Allergy Verified 05/27/18 21:47 Review of Systems ROS Statement: Except As Marked, All Systems Reviewed And Found Negative Constitutional: Negative for: Fever Gastrointestinal: Positive for: Abdominal Pain (stomach ache), Diarrhea (non- bloody). Negative for: Nausea, Vomiting Psych: Negative for: Suicidal ideation (or homicidal ideation) Physical Exam - Reviewed Nursing Documentation Reviewed: Yes Vital Signs Reviewed: Yes - Physical Exam Appears: Positive for: Non-toxic, No Acute Distress Head Exam: Positive for: ATRAUMATIC, NORMAL INSPECTION, NORMOCEPHALIC Skin: Positive for: Normal Color, Warm, Dry Eye Exam: Positive for: EOMI, Normal appearance, PERRL Neck: Positive for: Normal, Painless ROM, Supple Cardiovascular/Chest: Positive for: Regular Rate, Rhythm. Negative for: Murmur Respiratory: Positive for: Normal Breath Sounds. Negative for: Respiratory Distress Gastrointestinal/Abdominal: Positive for: Normal Exam, Soft, Tenderness (mild, epigastric) Back: Positive for: Normal Inspection. Negative for: L CVA Tenderness, R CVA Tenderness, Vertebral Tenderness Extremity: Positive for: Normal ROM. Negative for: Pedal Edema, Deformity Neurologic/Psych: Positive for: Alert, Oriented. Negative for: Motor/Sensory Deficits - Laboratory Results Result Diagrams: 06/18/18 08:34 06/18/18 09:51 - ECG O2 Sat by Pulse Oximetry: 100 (RA) Pulse Ox Interpretation: Normal - Progress Re-evaluation Time: 13:35 Condition: Re-examined, Improved Medical Decision Making Medical Decision Making: Time: 0820 Impression: Depression and Abdominal Pain DDx for abdominal pain includes but not limited to gastritis, pancreatitis, and biliary disease. Plan: Crisis Evaluation Alcohol Serum Drug Screen, Urine Lipase Urine Preg Urine Dipstick CBC UA ------- Scribe Attestation: Documented by Avel Gamez, acting as a scribe for Blaise Jacome MD. Provider Scribe Attestation: All medical record entries made by the Scribe were at my direction and personally dictated by me. I have reviewed the chart and agree that the record accurately reflects my personal performance of the history, physical exam, medical decision making, and the department course for this patient. I have also personally directed, reviewed, and agree with the discharge instructions and disposition. Disposition - Clinical Impression Clinical Impression: Schizoaffective disorder, Abdominal pain Doctor Will See Patient In The: Office Counseled Patient/Family Regarding: Studies Performed, Diagnosis, Need For Followup - Disposition Referrals: [facility] [Outside] [facility] [Outside] Disposition: Routine/Home Disposition Time: 13:39 Condition: GOOD Additional Instructions: BERENICE DURAN, thank you for letting us take care of you today. Your provider was Blaise Jacome MD and you were treated for PSYCH EVAL, ABD PAIN. The emergency medical care you received today was directed at your acute symptoms. If you were prescribed any medication, please fill it and take as directed. It may take several days for your symptoms to resolve. Return to the Emergency Department if your symptoms worsen, do not improve, or if you have any other problems. Please contact your doctor or call one of the physicians/clinics you have been referred to that are listed on the Patient Visit Information form that is included in your discharge packet. Bring any paperwork you were given at discharge with you along with any medications you are taking to your follow up visit. Our treatment cannot replace ongoing medical care by a primary care provider outside of the emergency department. Thank you for allowing the [facility] team to be part of your care today. If you had an X-Ray or CT scan: A Radiologist will review the ED reading if any change in treatment is needed we will contact you. If you had a blood, urine, or wound culture: It will take several days for the results, if any change in treatment is needed we will contact you. If you had an STI test: It will take 48 hours for the results. Please call after 1 week if you have not heard back. Prescriptions: Famotidine [Pepcid] 20 mg PO DAILY #14 tab Instructions: Stomach Ache and Stomach Upset, Schizoaffective Disorder (DC)
[2018-06-18 08:53] LABS: BASO % 0.7 % (0.0-2.0); EOS # 0.1 K/uL (0.0-0.7); EOS % 1.8 % (0.0-4.0); HEMOGLOBIN 9.3 g/dL (12.0-16.0); LYMPH # 2.2 K/uL (1.0-4.3); LYMPH % 47.3 % (20.0-40.0); MEAN CELL VOLUME 71.4 fl (81.0-99.0); MEAN CORPUSCULAR HEMOGLOBIN 21.8 pg (27.0-31.0); MEAN CORPUSCULAR HGB CONC 30.6 g/dL (33.0-37.0); MEAN PLATELET VOLUME 8.6 fl (7.2-11.7); MONO # 0.6 K/uL (0.0-0.8); MONO % 12.8 % (0.0-10.0); NEUT # 1.7 K/uL (1.8-7.0); NEUT % 37.4 % (50.0-75.0); NRBC % 0.1 % (0.0-0.0); RBC 4.27 Mil/uL (3.80-5.20); RED CELL DISTRIBUTION WIDTH 16.9 % (11.5-14.5); WHITE BLOOD COUNT 4.5 K/uL (4.8-10.8)
[2018-06-18 09:17] LABS: SQUAMOUS EPITHIAL 1 /hpf (0-5); URINE BACTERIA RARE (<OCC); URINE BILIRUBIN NEGATIVE (NEGATIVE); URINE BLOOD NEGATIVE (NEGATIVE); URINE CLARITY CLEAR (Clear); URINE COLOR YELLOW (YELLOW); URINE GLUCOSE (UA) NEG (NEGATIVE); URINE LEUKOCYTE ESTERASE NEG Leu/uL (Negative); URINE PROTEIN NEGATIVE (NEGATIVE); URINE UROBILINOGEN 0.2-1.0 mg/dL (0.2-1.0)
[2018-06-18 09:21] LABS: LIPASE 225 U/L (23-300)
[2018-06-18 09:35] LABS: BARBITURATES, UR NEGATIVE (NEGATIVE); BENZODIAZEPINES, UR NEGATIVE (NEGATIVE); OPIATES, UR NEGATIVE (NEGATIVE); PHENCYCLIDINE, UR NEGATIVE (NEGATIVE)
[2018-06-18 10:29] LABS: ALBUMIN 3.4 g/dL (3.5-5.0); ALT/SGPT 20 U/L (9-52); AST/SGOT 16 U/L (14-36); BLOOD UREA NITROGEN 9 mg/dl (7-17); GFR NON-AFRICAN AMERICAN > 60
[2018-06-18 14:27] VITALS: BP 130/72; PULSE 78; RESP 18
== END 2018-06-18 14:22 | disposition home or self-care (01) ==
LOC: H.ER 07:09
DX: F25.9 Schizoaffective disorder, unspecified (principal); F31.9 Bipolar disorder, unspecified; K85.90 Acute pancreatitis without necrosis or infection, unspecified

== ENCOUNTER 2018-06-23 12:06 | Emergency (ER) | payer OTHER ==
[2018-06-23 12:06] VITALS: BMI 39.6
[2018-06-23 12:25] VITALS: BP 146/82; PULSE 62; RESP 16; TEMP 98.3; O2SAT 100
--- NOTE | 2018-06-23 12:51 | ED PDOC ---
HPI: General Adult Time Seen by Provider: 06/23/18 12:49 Chief Complaint (Nursing): Med Refill Chief Complaint (Provider): med refill History Per: Patient (37 y/o female h/o bipolar disorder here requesting med refill. Patient has not tried to make appt with pmd as of yet.) Past Medical History Reviewed: Historical Data, Nursing Documentation, Vital Signs Vital Signs: Last Vital Signs Temp 98.3 F 06/23/18 12:23 Pulse 62 06/23/18 12:23 Resp 16 06/23/18 12:23 BP 146/82 06/23/18 12:23 Pulse Ox 100 06/23/18 12:23 - Medical History PMH: Bipolar Disorder, Depression, Schizophrenia Denies: Diabetes, Hepatitis, HIV, HTN, Chronic Kidney Disease, Seizures, Sexually Transmitted Disease - Family History Family History: States: Unknown Family Hx - Home Medications Home Medications: Ambulatory Orders Medication Instructions Recorded Divalproex [Depakote DR(*BID*)] 1,000 mg PO HS #60 tcp 06/04/18 Divalproex [Depakote DR(*BID*)] 250 mg PO DAILY #30 tcp 06/04/18 Escitalopram [Lexapro] 10 mg PO HS #30 tab 06/04/18 Benzonatate [Tessalon Perle] 100 mg PO Q8 PRN #10 capsule 06/08/18 Ibuprofen [Motrin] 600 mg PO Q6 PRN #10 tab 06/08/18 Oseltamivir Cap [Tamiflu] 75 mg PO BID #9 cap 06/08/18 Benzonatate [Tessalon Perles] 100 mg PO BID PRN 5 Days sgl 06/15/18 Ibuprofen [Motrin] 600 mg PO TID 7 Days tab 06/15/18 Famotidine [Pepcid] 20 mg PO DAILY #14 tab 06/18/18 Divalproex [Depakote ER] 1,000 mg PO DAILY #7 tab 06/23/18 - Allergies Allergies/Adverse Reactions: Allergies Allergy/AdvReac Type Severity Reaction Status Date / Time No Known Allergies Allergy Verified 06/23/18 12:20 Review of Systems ROS Statement: Except As Marked, All Systems Reviewed And Found Negative Physical Exam - Reviewed Nursing Documentation Reviewed: Yes Vital Signs Reviewed: Yes - Physical Exam Appears: Positive for: Well, Non-toxic, No Acute Distress Head Exam: Positive for: ATRAUMATIC, NORMAL INSPECTION, NORMOCEPHALIC Skin: Positive for: Normal Color, Warm, DRY Eye Exam: Positive for: EOMI, Normal appearance, PERRL ENT: Positive for: Normal ENT Inspection Neck: Positive for: Normal, Painless ROM Cardiovascular/Chest: Positive for: Regular Rate, Rhythm Respiratory: Positive for: CNT, Normal Breath Sounds Gastrointestinal/Abdominal: Positive for: Normal Exam, Soft Back: Positive for: Normal Inspection Extremity: Positive for: Normal ROM Neurologic/Psych: Positive for: Alert, Oriented - ECG O2 Sat by Pulse Oximetry: 100 Disposition - Clinical Impression Clinical Impression: Medication refill - Patient ED Disposition Is Patient to be Admitted: No - Disposition Referrals: [facility] [Outside] Disposition: Routine/Home Disposition Time: 12:50 Condition: FAIR Prescriptions: Divalproex [Depakote ER] 1,000 mg PO DAILY #7 tab Instructions: Valproic Acid and Derivatives
== END 2018-06-23 13:12 | disposition home or self-care (01) ==
LOC: H.ER 12:06
DX: Z76.0 Encounter for issue of repeat prescription (principal); F20.9 Schizophrenia, unspecified; F31.9 Bipolar disorder, unspecified

== ENCOUNTER 2018-07-14 10:39 | Emergency (ER) | payer OTHER ==
[2018-07-14 10:39] VITALS: BMI 39.6
[2018-07-14 10:42] VITALS: BP 143/85; PULSE 75; RESP 18; TEMP 98.3; O2SAT 100
--- NOTE | 2018-07-14 11:43 | ED PDOC ---
HPI: Psych/Substance Abuse Time Seen by Provider: 07/14/18 11:15 Chief Complaint (Nursing): Psychiatric Evaluation Chief Complaint (Provider): Crisis Eval History Per: Patient History/Exam Limitations: no limitations (Pt presents for the fourth time in three weeks seeking housing assistance and services outside; Pt denies NVD other chronic medical conditions, HI or SI) Past Medical History Reviewed: Historical Data, Nursing Documentation, Vital Signs Vital Signs: Last Vital Signs Temp 98.3 F 07/14/18 10:41 Pulse 75 07/14/18 10:41 Resp 18 07/14/18 10:41 BP 143/85 07/14/18 10:41 Pulse Ox 100 07/14/18 10:41 - Medical History PMH: Bipolar Disorder, Depression, Schizophrenia Denies: Diabetes, Hepatitis, HIV, HTN, Chronic Kidney Disease, Seizures, Sexually Transmitted Disease - Family History Family History: States: Unknown Family Hx - Home Medications Home Medications: Ambulatory Orders Medication Instructions Recorded Divalproex [Depakote DR(*BID*)] 1,000 mg PO HS #60 tcp 06/04/18 Divalproex [Depakote DR(*BID*)] 250 mg PO DAILY #30 tcp 06/04/18 Escitalopram [Lexapro] 10 mg PO HS #30 tab 06/04/18 Benzonatate [Tessalon Perle] 100 mg PO Q8 PRN #10 capsule 06/08/18 Ibuprofen [Motrin] 600 mg PO Q6 PRN #10 tab 06/08/18 Oseltamivir Cap [Tamiflu] 75 mg PO BID #9 cap 06/08/18 Benzonatate [Tessalon Perles] 100 mg PO BID PRN 5 Days sgl 06/15/18 Ibuprofen [Motrin] 600 mg PO TID 7 Days tab 06/15/18 Famotidine [Pepcid] 20 mg PO DAILY #14 tab 06/18/18 Divalproex [Depakote ER] 1,000 mg PO DAILY #7 tab 06/23/18 - Allergies Allergies/Adverse Reactions: Allergies Allergy/AdvReac Type Severity Reaction Status Date / Time PORK AdvReac NAUSEA Verified 07/14/18 10:57 ICE CREAM AdvReac NAUSEA Uncoded 07/14/18 10:57 Review of Systems ROS Statement: Except As Marked, All Systems Reviewed And Found Negative Constitutional: Negative for: Fever Physical Exam - Reviewed Nursing Documentation Reviewed: Yes Vital Signs Reviewed: Yes - Physical Exam Appears: Positive for: Well, Non-toxic, No Acute Distress. Negative for: Uncomfortable Head Exam: Positive for: ATRAUMATIC, NORMAL INSPECTION Skin: Positive for: Normal Color, Warm, Dry. Negative for: Diaphoresis, Pallor, Rash Eye Exam: Positive for: Normal appearance, PERRL. Negative for: Nystagmus, Periorbital swelling, Periorbital tenderness Neck: Positive for: Normal, Painless ROM, Supple. Negative for: Decreased ROM Cardiovascular/Chest: Positive for: Regular Rate, Rhythm Respiratory: Positive for: Normal Breath Sounds Pulses-Carotid (L): 2+ Pulses-Carotid (R): 2+ Pulses-Radial (L): 2+ Pulses-Radial (R): 2+ - ECG O2 Sat by Pulse Oximetry: 100 Disposition - Clinical Impression Clinical Impression: Schizoaffective disorder, bipolar type Discussed With Dr.: Zac Pereyra Doctor Will See Patient In The: Office Counseled Patient/Family Regarding: Diagnosis, Need For Followup - Disposition Disposition: Routine/Home Disposition Time: 11:46 Condition: STABLE Additional Instructions: FOR INTERMEDIATE SERVICES: [facility] INTERMEDIATE [address] [place] [address] FOR MEDICAL AND MENTAL HEALTH SERVICES: MEDICAL AND PROPERTY CONDITION ASSESSOR FOR THE HOMELESS [address] [place] [address] Instructions: Schizoaffective Disorder, Schizoaffective Disorder (DC) Forms: [employer] (Mauritian)
== END 2018-07-14 11:52 | disposition home or self-care (01) ==
LOC: H.ER 10:39
DX: F25.0 Schizoaffective disorder, bipolar type (principal); Z79.899 Other long term (current) drug therapy

== ENCOUNTER 2018-07-17 23:12 | Emergency (ER) | payer OTHER ==
[2018-07-17 23:12] VITALS: BMI 39.6
--- NOTE | 2018-07-18 01:48 | ED PDOC ---
HPI: Psych/Substance Abuse Time Seen by Provider: 07/18/18 00:45 Chief Complaint (Nursing): GI Problem Chief Complaint (Provider): Depression History Per: Patient History/Exam Limitations: no limitations Associated Symptoms: Depression. denies: Suicidal Thoughts Additional Complaint(s): 38 y/o female presents to the ED for the 3rd time this week complaining of depression and an inability to fill her prescription. Patient states she is homeless and has to take 3 buses to her day program which has caused her to miss appointments. Patient reports she has a mild headache now. Otherwise, she has no attempts to hurt herself. She does not feel unsafe in her half-way and has no other medical complaints. Patient is requesting food and has her lights turned off so she can sleep. Past Medical History Reviewed: Historical Data, Nursing Documentation, Vital Signs Vital Signs: Last Vital Signs Temp 98.5 F 07/17/18 23:15 Pulse 69 07/17/18 23:15 Resp 18 07/17/18 23:15 BP 143/82 07/17/18 23:15 Pulse Ox 100 07/17/18 23:15 - Medical History PMH: Bipolar Disorder, Depression, Schizophrenia Denies: Diabetes, Hepatitis, HIV, HTN, Chronic Kidney Disease, Seizures, Sexually Transmitted Disease - Family History Family History: States: Unknown Family Hx - Home Medications Home Medications: Ambulatory Orders Medication Instructions Recorded Divalproex [Depakote DR(*BID*)] 1,000 mg PO HS #60 tcp 06/04/18 Divalproex [Depakote DR(*BID*)] 250 mg PO DAILY #30 tcp 06/04/18 Escitalopram [Lexapro] 10 mg PO HS #30 tab 06/04/18 Benzonatate [Tessalon Perle] 100 mg PO Q8 PRN #10 capsule 06/08/18 Ibuprofen [Motrin] 600 mg PO Q6 PRN #10 tab 06/08/18 Oseltamivir Cap [Tamiflu] 75 mg PO BID #9 cap 06/08/18 Benzonatate [Tessalon Perles] 100 mg PO BID PRN 5 Days sgl 06/15/18 Ibuprofen [Motrin] 600 mg PO TID 7 Days tab 06/15/18 Famotidine [Pepcid] 20 mg PO DAILY #14 tab 06/18/18 Divalproex [Depakote ER] 1,000 mg PO DAILY #7 tab 06/23/18 - Allergies Allergies/Adverse Reactions: Allergies Allergy/AdvReac Type Severity Reaction Status Date / Time PORK AdvReac NAUSEA Verified 07/17/18 23:15 ICE CREAM AdvReac NAUSEA Uncoded 07/17/18 23:15 Review of Systems ROS Statement: Except As Marked, All Systems Reviewed And Found Negative Neurological: Positive for: Headache Psych: Positive for: Depression Physical Exam - Reviewed Nursing Documentation Reviewed: Yes Vital Signs Reviewed: Yes - Physical Exam Appears: Positive for: Well, Non-toxic, No Acute Distress Head Exam: Positive for: ATRAUMATIC, NORMAL INSPECTION, NORMOCEPHALIC Skin: Positive for: Normal Color, Warm, DRY Eye Exam: Positive for: EOMI, Normal appearance, PERRL ENT: Positive for: Normal ENT Inspection Neck: Positive for: Normal, Painless ROM Cardiovascular/Chest: Positive for: Regular Rate, Rhythm. Negative for: Murmur Respiratory: Positive for: Normal Breath Sounds. Negative for: Respiratory Distress Gastrointestinal/Abdominal: Positive for: Normal Exam, Soft. Negative for: Tenderness Back: Positive for: Normal Inspection Extremity: Positive for: Normal ROM. Negative for: Pedal Edema, Deformity Neurologic/Psych: Positive for: Alert, Oriented. Negative for: Motor/Sensory Deficits - ECG O2 Sat by Pulse Oximetry: 100 (RA) Pulse Ox Interpretation: Normal Medical Decision Making Medical Decision Making: Time: 01:05 MDM: 38 y/o with depression. Most likely will discharge; questionable malingering. Plan: * Tylenol for headache * Crisis evaluation. 01:20 Patient was cleared by crisis under Dr. Basurto with diagnosis of depression Patient encouraged to follow up in outpatient clinic for prescription refills. Scribe Attestation: Documented by Nolan Almaraz acting as a scribe for Deb Love MD. Provider Scribe Attestation: All medical record entries made by the Maricelibstephon were at my direction and personally dictated by me. I have reviewed the chart and agree that the record accurately reflects my personal performance of the history, physical exam, medical decision making, and the department course for this patient. I have also personally directed, reviewed, and agree with the discharge instructions and disposition. Disposition - Disposition Additional Instructions: FOLLOW UP WITH [address] [facility] [address] [place] [address] Forms: [employer] (Lithuanian)
[2018-07-18 02:02] VITALS: BP 138/76; PULSE 70; RESP 16; TEMP 98.4; O2SAT 99
== END 2018-07-18 02:39 | disposition home or self-care (01) ==
LOC: H.ER 23:12
DX: F31.9 Bipolar disorder, unspecified (principal); F20.9 Schizophrenia, unspecified; Z79.899 Other long term (current) drug therapy